=== PATIENT | male | born 1955 | race Caucasian/White ===

== ENCOUNTER → 2023-09-01 | Outpatient (CLI) | payer MEDICARE, OTHER, SELFPAY ==
--- NOTE | 2023-09-01 13:28 | NEURO ---
NCS and/or EMG Patient Report Ordering Doctor: Joesph Claros DATE OF SERVICE: 09/01/23 Tito presents for electrodiagnostic testing of the lower limbs. Reports of persistent numbness in both legs and feet. He reports intermittent lower back pain. Electrodiagnostic findings: Right peroneal motor nerve demonstrates prolonged distal latency with normal amplitude and an approximately 20% drop in conduction across the fibular head. Left peroneal motor nerve demonstrates normal distal latency and amplitude with an approximately 30% drop in conduction across the fibular head. Right peroneal motor amplitude is greater than 50% less on the right side when compared to the let. Tibial motor response is within normal limits bilaterally. Prolonged right peroneal F wave. Borderline prolonged tibial H reflex bilaterally. Mildly prolonged left sural latency. Normal superficial peroneal latency bilaterally. Normal right sural response. Needle EMG testing was performed in the lower limbs. All muscles tested showed no evidence of denervation with normal motor unit action potentials. Electrodiagnostic impression: This is an abnormal study in the lower limbs 1. 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 2. No electrodiagnostic evidence is noted for peripheral polyneuropathy. 3. There is no electrodiagnostic evidence for lumbosacral radiculopathy. Multi Select Codes Neurology Neurology Interp Codes: 19767-70 Musc test done w/n test comp (interp) (2) and 38124-15 Nrv cndj test 9-10 studies (interp)
== END | disposition home or self-care (01) ==
PROVIDERS: PCP Family Medicine; Referring Provider Physician Assistant; Visit Provider Physician Assistant
DX: G57.93 Unspecified mononeuropathy of bilateral lower limbs (principal); G62.9 Polyneuropathy, unspecified; R20.0 Anesthesia of skin
CPT/HCPCS: 95886; 95911